=== PATIENT | female | born 1970 | race Two or more races ===

== ENCOUNTER 2024-04-11 13:01 | Outpatient (RCR) | payer MEDICAID, SELFPAY | END 2024-04-15 23:59 | disposition home or self-care (01) | LOC: SCTC 13:01 | PROVIDERS: PCP Physician Assistant; Referring Provider Physician Assistant; Visit Provider Nurse Practitioner Family | DX: D50.9 Iron deficiency anemia, unspecified (principal); D72.829 Elevated white blood cell count, unspecified; E66.01 Morbid (severe) obesity due to excess calories; Z68.42 Body mass index [BMI] 45.0-49.9, adult; N63.20 Unspecified lump in the left breast, unspecified quadrant; I10 Essential (primary) hypertension; E11.9 Type 2 diabetes mellitus without complications | CPT/HCPCS: 96365; 96366; 96375; J2919; J3490; Q0138 ==

== ENCOUNTER → 2024-07-06 | Outpatient (CLI) | payer MEDICAID, SELFPAY ==
[2024-07-05 09:35] LABS: Basophils % (Auto) 0 % (0-2.5); Eosinophils # (Auto) 0.1 Thou/mm3 (0.0-0.5); Eosinophils % (Auto) 1 % (0-10); Hemoglobin 12.1 g/dL (12.0-16.0); Immature Granulocytes % (Auto) 2 % (0-0); Immature Granulocytes Auto 0.23 Thou/mm3 (0.00-0.00); Lymphocytes # (Auto) 2.4 Thou/mm3 (1.0-4.8); Lymphocytes % (Auto) 19 % (10-50); Mean Corpuscular HGB Conc 32.7 g/dl (31.0-37.0); Mean Corpuscular Hemoglobin 32.5 pg (25.0-35.0); Mean Corpuscular Volume 100 fL (80-100); Monocytes # (Auto) 0.6 Thou/mm3 (0.0-0.8); Monocytes % (Auto) 5 % (0-12); Neutrophils # (Auto) 8.8 Thou/mm3 (1.8-7.7); Neutrophils % (Auto) 73 % (37-80); Nucleated Red Blood Cell % 0 /100 WBC (0); Platelet Count 311 Thou/mm3 (140-440); RDW Standard Deviation 49.6 fL (36.4-46.3); Red Blood Count 3.72 Miln/mm3 (4.00-5.20); White Blood Count 12.1 Thou/mm3 (3.6-11.0)
[2024-07-05 09:36] LABS: INR 0.9 (0.9-1.3); Partial Thromboplastin Time 23.4 Seconds (22.0-36.0); Prothrombin Time 10.3 Seconds (9.0-12.2)
--- NOTE | 2024-07-06 09:30 | XR_ITS ---
Examinations: Ultrasound-guided percutaneous breast biopsy, left breast 1:00 nodule Left breast sonography limited INDICATIONS: BI-RADS 4 suspicious nodule 1:00 position left breast on left breast sonogram March 17, 2024. Exam date and time: July 06, 2024 1005 hours. Informed consent provided. Technique: A timeout was completed verifying correct patient, procedure, site, positioning, and special equipment if applicable Informed consent provided. The patient was placed in a supine position for the breast biopsy. Sonographic images of the breast were performed for localization of the suspicious nodule The patient's breast was prepped and draped in sterile fashion. Maximum sterile barrier technique, hand hygiene, ultrasound sterile technique 1% lidocaine was used to anesthetize the skin and breast adjacent to the suspicious nodule. Utilizing ultrasonographic guidance, 8 core biopsies were obtained of the suspicious nodule utilizing an 18-gauge BioPince needle. The specimens appears satisfactory. Estimated blood loss 3 cc. The patient tolerated the procedure well and there were no complications. Impression: Successful ultrasound-guided percutaneous breast biopsy, left breast 1:00 nodule.
== END | disposition home or self-care (01) ==
LOC: SIRX 07-13 08:15
PROVIDERS: Radiology Diagnostic Radiology; PCP Physician Assistant; Referring Provider Physician Assistant; Visit Provider Physician Assistant
DX: D24.2 Benign neoplasm of left breast (principal); Z01.812 Encounter for preprocedural laboratory examination
CPT/HCPCS: 19083; 36415; 85025; 85610; 85730

== ENCOUNTER 2024-08-02 13:29 | Outpatient (RCR) | payer MEDICAID, SELFPAY ==
--- NOTE | 2024-08-21 00:53 | CTCFLWUP_ITS ---
Patient: SINGH ARELLANO : 1970 Page 3 of 4 FOLLOW UP NOTE DATE OF SERVICE: 08/02/2024 NAME: SINGH ARELLANO ACCOUNT: [id number] : 1970 AGE: 54 INTERVAL HISTORY: ONCOLOGY HISTORY: DIAGNOSIS: Leukocytosis and neutrophilia secondary to obesity Morbid obesity with a BMI of 47.7 (236 pounds) Flow cytometry, negative (03/31/2021) History of normocytic anemia Iron deficiency, 02/02/2023 Ms. Arellano is premenopausal. She continues to have menstrual cycles. Hypertension REASON FOR TODAY?S VISIT: This is an office follow-up visit. Ms. Arellano is here at [facility]. Patient's only complaint today is feeling tired. Labs from 01/25/2024 show hemoglobin 10.0, MCV 95, iron saturation 6%, WBC 16.7, ANC 10.6. Patient has been taking oral ferrous sulfate daily, iron saturation decreased from 12% to 6%. Patient denies any bleeding concerns. Pending GI for colonoscopy screening, no previous colonoscopies. Patient reports good appetite. Denies any cough, chest pain, abdominal pain or leg cramps, fever, weight loss. Denies craving ice paint dirt. Iron deficiency anemia, unspecified [ICD10] D50.9 DATE OF DIAGNOSIS: STAGE/TNM: TREATMENT HISTORY: Care?Plan Start?Date Cycle Day Intent FERAheme?4?doses 03/28/2024 1 28 Palliative HISTORY OF PRESENT ILLNESS: PREVIOUS NOTE: Ms. Santos is a 54-year-old Tunisian-speaking female with past medical history of hypothyroidism, hypertension and diabetes. She is referred to hematology clinic today to evaluate for leukocytosis with neutrophilia and lymphocytosis. Patient denies any history of smoking or use of alcohol. Labs done prior to the visit are shown as followin10/16/2021: WBC 14.7, ANC 11.0, hemoglobin 12.6, platelets 348,000. 01/25/2023: Hemoglobin 10.5, hematocrit 32.4, MCV 88, WBC 16.7, ANC 12.3, platelets 431,000, creatinine 1.21, EGFR 54. 02/02/2023: Hemoglobin 10.8, hematocrit 33.9, MCV 89, WBC 13.5, ANC 1 9, platelets 434,000, creatinine 0.98, EGFR 70, AST 78, ALT 53. Iron saturation 9%, ferritin 28. 02/26/2023: Hemoglobin 11.6, hematocrit 35.0, MCV 90, WBC 11.6, ANC 7.1, platelets 418,000, creatinine 1.07, eGFR 63, AST 63, ALT 49, bilirubin total 0.3. 08/11/2023: bilateral breast diagnostic mammogram Findings: Scattered areas of fibroglandular density 1:00 nodule again depicted Benign calcifications Impression: BI-RADS Category 0: Incomplete: Need additional imaging evaluation Recommend follow-up repeat left breast sonography to compare with the May 07, 2022 left breast sonogram describing the BI-RADS 4 suspicious nodule 1:00 position left breast. 09/10/2023: Hemoglobin 10.0, MCV 89, WBC 16.3, ANC 9.6, platelets 478,000, creatinine 0.85, AST 24, ALT 23, bilirubin total <0.2, iron saturation 12%, ferritin 15 08/11/2023: Bilateral diagnostic mammogram Impression: BI-RADS Category 0: Incomplete: Need additional imaging evaluation Recommend follow-up repeat left breast sonography to compare with the May 07, 2022 left breast sonogram describing the BI-RADS 4 suspicious nodule 1:00 position left breast. 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 levothyroxine - 25 mcg 1 tab Daily 2. levothyroxine - 50 mcg 1 tab Daily 3. losartan-hydrochlorothiazide - 50-12.5 mg 1 tab Daily Medications Last Reconciled by Singh Braxton MA on 08/02/2024 ALLERGIES: No Known Drug Allergies REVIEW OF SYSTEMS: A complete 14-point review of systems was performed and is negative except as noted in interval history. PHYSICAL EXAMINATION: VITAL SIGNS: Temperature?99.8, B/P?169/107, Oxygen?Saturation?97% Weight?222?lbs PAIN: 0 - No pain GENERAL APPEARANCE: Appears well, in no apparent distress, appropriately interactive. HEENT: Normocephalic, no temporal wasting, normal conjunctiva, no scleral icterus, normal hearing, lips without lesions, neck normal range of motion. CARDIOVASCULAR: Not assessed. PULMONARY: Normal respiratory effort, no respiratory distress or use of accessory muscles, speaking in full sentences, no tachypnea. EXTREMITIES: No pedal edema or cyanosis. SKIN: Normal skin appearance. NEUROLOGIC: Alert and oriented x4. PSHYCHIATRIC: Appropriate affect, mood normal, behavior normal, intact thought and speech. LABORATORY DATA: I have personally reviewed and interpreted each of the patient?s relevant lab tests, abnormal findings are below: Date 07/05/24 ??WHITE?BLOOD?COUNT?(Thou/mm3) 12.1?H ??RED?BLOOD?COUNT?(Miln/mm3) 3.72?L ??HEMOGLOBIN?(gm/dl) 12.1 ??HEMATOCRIT?(%) 37.0 ??PLATELET?COUNT?(Thou/mm3) 311 ??NEUTROPHILS?%,?AUTO?(%) 73 ??LYMPH?%,?AUTO?(%) 19 ??NEUTROPHILS,?AUTO?(Thou/mm3) 8.8?H ASSESSMENT/PLAN: 1. Iron deficiency anemia, no improvement with oral ferrous sulfate. 2. Chronic kidney disease 3. Leukocytosis and neutrophilia secondary to obesity. 4. Morbid obesity with a BMI of 47.7, 236 LB. 7. Left breast nodule,6 month left breast ultrasound recommended, 10/05/2023. 8. History of hypertension and diabetes. ORDERS: Order # Description [id number] Comprehensive Metabolic Panel - 12 + CBC with Auto Diff + CA 15-3 [id number] Will order colonoscopy with the GI Sleep study to evaluate for hypoxia RETURN TO CLINIC: 4 weeks BILLING AND COMPLIANCE: I reviewed external records from providers outside my specialty as summarized above. I spent a total of 50 minutes on this patient?s care on the day of their visit excluding time spent related to any billed procedures. This time includes time spent with the patient as well as time spent documenting in the medical record, reviewing patients records and tests, obtaining history, placing orders, communicating with other healthcare professionals, counseling the patient, family or caregiver, and/or care coordination for the diagnoses above. Electronically Signed by: Jorge Lorenzana MD T: 12:51 AM CC: Rosa Isela?Herb? PCP: Barbara Armstrong Referring: Barbara Armstrong This document was completed utilizing speech recognition software. Grammatical errors, random word insertions, pronoun errors, and incomplete sentences are an occasional consequence of this system due to software limitations, ambient noise, and hardware issues. Any formal questions or concerns about the content, text or information contained within the body of this dictation should be directly addressed to the provider for clarification.
== END 2024-08-14 23:59 | disposition home or self-care (01) ==
LOC: SCTC 13:29
PROVIDERS: PCP Physician Assistant; Referring Provider Physician Assistant; Visit Provider Internal Medicine Hematology & Oncology
DX: D50.9 Iron deficiency anemia, unspecified (principal); D72.829 Elevated white blood cell count, unspecified; E66.01 Morbid (severe) obesity due to excess calories; Z68.42 Body mass index [BMI] 45.0-49.9, adult; E11.22 Type 2 diabetes mellitus with diabetic chronic kidney disease; I12.9 Hypertensive chronic kidney disease with stage 1 through stage 4 chronic kidney disease, or unspecified chronic kidney disease; N18.9 Chronic kidney disease, unspecified; N63.21 Unspecified lump in the left breast, upper outer quadrant
CPT/HCPCS: 99213; G0463

== ENCOUNTER 2024-08-24 16:28 | Emergency (ER) | payer MEDICAID, SELFPAY ==
[2024-08-24 16:51] VITALS: BP 161/92; PULSE 106; RESP 18; TEMP 37.3; O2SAT 95; BMI 45.6
--- NOTE | 2024-08-24 17:01 | XR_ITS ---
Examination: Duplex scan of the lower extremity, unilateral right Date and time of exam: August 24, 2024 1757 hrs. Indications: Right leg and calf pain beginning one week ago Technique: Duplex scan of the extremity veins using B-mode/grayscale imaging and Doppler spectral analysis and color flow Attention is directed to internal echogenicity, compression and augmentation involving these veins, color flow assessment, spectral analysis Findings: Major deep venous structures in the extremity demonstrate normal course and caliber. There is no evidence of deep vein thrombosis. Normal color flow and spectral analysis 11 mm popliteal cyst Impression: Negative for DVT..
--- NOTE | 2024-08-24 17:02 | PD.EDRME ---
Rapid Medical Screening Exam RME Arrival date/time: 08/24/24 16:28 This is 54-year-old female presented to the emergency department to rule out DVT right calf. Sent over by her PCP I have greeted and performed a focused initial assessment of this patient. Initial appropriate labs ordered at this time. A comprehensive ED assessment and evaluation of the patient and analysis of all test and completion of medical decision making process will be conducted by additional ED provider. Chief Complaint: Ankle/Foot Injury Time Seen by Provider: 08/24/24 16:43 Vital signs: Vital Signs Temperature 99.1 F 08/24/24 16:51 Pulse Rate 106 H 08/24/24 16:51 Respiratory Rate 18 08/24/24 16:51 Blood Pressure 161/92 H 08/24/24 16:51 Pulse Oximetry (%) 95 08/24/24 16:51 Oxygen Delivery Method Room Air 08/24/24 16:51
[2024-08-24 17:37] LABS: Basophils % (Auto) 0 % (0-2.5); Eosinophils # (Auto) 0.1 Thou/mm3 (0.0-0.5); Eosinophils % (Auto) 1 % (0-10); Hematocrit 36.4 % (36.0-46.0); Immature Granulocytes % (Auto) 2 % (0-0); Immature Granulocytes Auto 0.19 Thou/mm3 (0.00-0.00); Lymphocytes % (Auto) 16 % (10-50); Mean Corpuscular Hemoglobin 33.4 pg (25.0-35.0); Mean Corpuscular Volume 101 fL (80-100); Monocytes # (Auto) 0.6 Thou/mm3 (0.0-0.8); Monocytes % (Auto) 4 % (0-12); Neutrophils % (Auto) 78 % (37-80); Nucleated Red Blood Cell % 0 /100 WBC (0); Platelet Count 358 Thou/mm3 (140-440); RDW Standard Deviation 51.3 fL (36.4-46.3); Red Blood Count 3.59 Miln/mm3 (4.00-5.20); White Blood Count 12.9 Thou/mm3 (3.6-11.0)
[2024-08-24 17:55] LABS: Alanine Aminotransferase 26 U/L (10-49); Albumin, Serum 4.1 gm/dL (3.5-5.0); Albumin/Globulin Ratio 1.4 (1.2-2.2); Alkaline Phosphatase 60 U/L (46-116); Anion Gap 11 (7-16); Aspartate Amino Transferase 17 U/L (0-34); BUN/Creatinine Ratio 15 Ratio (12-20); Bilirubin,Total 0.5 mg/dL (0.3-1.2); Blood Urea Nitrogen 24 mg/dL (9-23); Calcium 9.2 mg/dL (8.3-10.6); Calcium (Corrected) 9.2 mg/dL (8.5-10.1); Carbon Dioxide 25.4 mMol/L (20.0-31.0); Chloride 107 mMol/L (98-107); Creatinine (Component) 1.6 mg/dL (0.6-1.3); Estimated Creatinine Clearance 41.6 mL/min (>60); Globulin 2.9 gm/dL (2.3-3.5); Glucose 117 mg/dL (74-106); Osmolality,Calculated 289 (275-295); Potassium 3.7 mMol/L (3.4-5.1); Sodium 143 mMol/L (136-145); eGFR 39 See Note
[2024-08-24 17:59] LABS: Prothrombin Time 10.8 Seconds (9.0-12.2)
--- NOTE | 2024-08-24 20:41 | EDNOTE_ITS ---
ED General RME/HPI General Chief complaint: Ankle/Foot Injury Stated complaint: RIGHT FOOT SWOLLEN/PAIN X 1 WK; SENT BY PRIMARY Time Seen by Provider: 08/24/24 16:43 Arrival date/time: 08/24/24 16:28 RME / HPI RME / HPI narrative: 54-year-old female patient was sent to us by primary doctor to rule out DVT for swelling of the right lower leg for 1 week. Denies any trauma denies any redness denies any fever denies any other complaints no medication was taken prior to arrival. Related Data Allergies Allergy/AdvReac Type Severity Reaction Status Date / Time No Known Allergies Allergy Verified 08/24/24 16:33 Review of Systems Review of Systems Narrative Review of Systems: Review of system reviewed and within normal limits except mentioned in HPI ED Exam Narrative Physical exam: VITAL SIGNS: Reviewed. GENERAL APPEARANCE: Alert and interactive, follows commands, no acute distress, HEAD AND FACE: Non-traumatic. ENT: PERRL, pink conjunctivitis, eyelid no trauma, Mucous membrane moist. NECK: Supple, nontender, no nuchal rigidity. CHEST: No tenderness, no crepitus, no paradoxical movement, no retractions. LUNGS: Clear, well ventilated, symmetric, no rales, no wheezing, no ronchi, no stridor, good breath sounds bilaterally. HEART: Regular rate, regular rhythm, no murmur, no gallops. ABDOMEN: Soft, positive bowel sounds, nondistended, no guarding, nontender, no rebound, no masses, RECTAL: Deferred. GENITAL: Deferred. NEUROLOGICAL: Gross motor function intact sensory function intact, Appropriate for age. MUSCULOSKELETAL: low back nontender, full range of motion. EXTREMITIES: Right lower extremity +1 edema, nontender distal neurovascular status intact, full range of motion. SKIN: Color pink, dry, no rash, no lacerations, no abrasions, no contusions. LYMPHATICS: Deferred. Course Quality Measures none Orders Category Date Time Status US venous duplex LE RT Stat Exams 08/24/24 17:01 Completed CBC Stat Lab 08/24/24 17:24 Completed CMP [Comprehensive Metabolic Panel] Stat Lab 08/24/24 17:24 Completed INR [Prothrombin Time with INR] Stat Lab 08/24/24 17:24 Completed Vital Signs Vital signs: Vital Signs Temperature 99.1 F 04/10/25 16:51 Pulse Rate 106 H 08/24/24 16:51 Respiratory Rate 18 08/24/24 16:51 Blood Pressure 161/92 H 08/24/24 16:51 Pulse Oximetry (%) 95 08/24/24 16:51 Oxygen Delivery Method Room Air 08/24/24 16:51 MDM Patient data External records reviewed:: None Clinical information provided by:: patient Social determinants that could affect healthcare access:: none Patient has the following chronic illnesses:: None How is presenting disease/condition affected by chronic disease/condition?: no chronic disease Evaluation data The following diagnostics were reviewed and interpreted by me:: lab results and radiology exam(s) Lab and/or radiology exams considered but not ordered:: None Interpretation Summary: Patient's workup all came back unremarkable ultrasound of the leg came back with no DVT. Medications Medications considered but not ordered:: None Medication administrations:: None Consultations Consultation(s) initiated? (list below): No Diagnosis Differential Diagnosis ED Complaint MDM: DVT, leg swelling, lymphedema Most likely diagnosis given after review of the tests above:: Leg swelling Admission Indicated Admission indicated?: not indicated Explain why admission is indicated or not indicated:: Stable Admission Request Was there a request for admission?: No Disposition Plan Disposition Plan: Discharge Discharge Attestation Discharge Attestation: The patient and all family members were given an opportunity to ask questions and understood the discharge instructions. Discharge instructions specifically effects, indications for sooner follow up or return to the emergency department, and the expected course of current diagnosis. Patient condition: Stable Medical Decision Making MDM Narrative MDM Narrative: 54-year-old female patient was sent to us by primary doctor to rule out DVT for swelling of the right lower leg for 1 week. Denies any trauma denies any redness denies any fever denies any other complaints no medication was taken prior to arrival. Patient tested negative for DVT. Patient's workup is significant for slight leukocytosis of 12.9 the rest of the labs unremarkable. Except for creatinine of 1.6 and BUN of 24. Patient was advised to drink a lot of fluids and follow- up closely with PCP for repeat laboratory workup especially the creatinine. Patient and family agrees with the plan. Patient appears nontoxic and hemodynamically stable. Patient discharged home and instructed to follow-up with primary care provider in 24 to 48 hours. Instructed to return to the emergency department immediately if worsening of symptoms Differential Diagnosis Differential Diagnosis: DVT, leg swelling, lymphedema Lab Data 08/24/24 17:24 08/24/24 17:24 Labs: Lab Results 08/24/24 Range/Units 17:24 WBC 12.9 H (3.6-11.0) Thou/mm3 RBC 3.59 L (4.00-5.20) Miln/mm3 Hgb 12.0 (12.0-16.0) g/dL Hct 36.4 (36.0-46.0) % MCV 101 H (80-100) fL MCH 33.4 (25.0-35.0) pg MCHC 33.0 (31.0-37.0) g/dl RDW Std Deviation 51.3 H (36.4-46.3) fL Plt Count 358 (140-440) Thou/mm3 Neut % (Auto) 78 (37-80) % Lymph % (Auto) 16 (10-50) % [place] % (Auto) 4 (0-12) % Eos % (Auto) 1 (0-10) % Baso % (Auto) 0 (0-2.5) % Neut # (Auto) 10.0 H (1.8-7.7) Thou/mm3 Lymph # (Auto) 2.0 (1.0-4.8) Thou/mm3 [place] # (Auto) 0.6 (0.0-0.8) Thou/mm3 Eos # (Auto) 0.1 (0.0-0.5) Thou/mm3 Baso # (Auto) 0.0 (0.0-0.2) Thou/mm3 Immature Gran # (Auto) 0.19 H (0.00-0.00) Thou/mm3 Absolute Nucleated RBC 0.00 (0.00-0.00) Thou/mm3 Immature Gran % 2 H (0-0) % Nucleated RBC % 0 (0) /100 WBC PT 10.8 (9.0-12.2) Seconds INR 1.0 (0.9-1.3) Sodium 143 (136-145) mMol/L Potassium 3.7 (3.4-5.1) mMol/L Chloride 107 (98-107) mMol/L Carbon Dioxide 25.4 (20.0-31.0) mMol/L Anion Gap 11 (7-16) BUN 24 H (9-23) mg/dL Creatinine 1.6 H (0.6-1.3) mg/dL Estim Creat Clear Calc 41.6 L (>60) mL/min eGFR 39 L (60 - ) See Note BUN/Creatinine Ratio 15 (12-20) Ratio Glucose 117 H (74-106) mg/dL Calculated Osmolality 289 (275-295) Calcium 9.2 (8.3-10.6) mg/dL Corrected Calcium 9.2 (8.5-10.1) mg/dL Total Bilirubin 0.5 (0.3-1.2) mg/dL AST 17 (0-34) U/L ALT 26 (10-49) U/L Alkaline Phosphatase 60 (46-116) U/L Total Protein 7.0 (5.7-8.2) gm/dL Albumin 4.1 (3.5-5.0) gm/dL Globulin 2.9 (2.3-3.5) gm/dL Albumin/Globulin Ratio 1.4 (1.2-2.2) Discharge Plan Plan Patient Disposition: HOME (Self Care) Disposition Comment: Stable Prescriptions/Referrals Referrals: No Primary/Family,Physician [Primary Care Provider] - In 1 week Problem List Clinical Impression: Leg swelling, Dehydration Patient/Caregiver Discharge Instructions Discharge Activity: activity as tolerated Education Materials: ED Leg Swelling in a Single Leg Additional Instructions: Thank you for the opportunity for serving you today. You are stable for discharged . You are advised to: Follow-up with your PCP in 1 to 2 days Return to ED for worsening of symptoms Increase oral fluids Print Language: Gibraltarian Stand Alone Forms: Michelle Award Info., Patient Portal Info Letter DESMOND/THEODORE Supervising Physician SHAI Supervising Physician: MD Quin[place]
== END 2024-08-24 20:44 | disposition home or self-care (01) ==
PROVIDERS: Nurse Practitioner Primary Care; Emergency Provider Emergency Medicine
DX: R22.41 Localized swelling, mass and lump, right lower limb (principal); E86.0 Dehydration; D72.829 Elevated white blood cell count, unspecified
CPT/HCPCS: 36415; 80053; 85025; 85610; 93971; 99284

== ENCOUNTER → 2024-09-29 | Outpatient (CLI) | payer MEDICAID, SELFPAY ==
--- NOTE | 2024-09-29 08:45 | XR_ITS ---
Examination: Screening digital mammography, bilateral Computer aided detection 3-D breast Tomosynthesis, bilateral Date and time of exam: September 29, 2024 0825 hours Compared to mammograms dating to December 05, 2020 Indication: Screening Technique: Nonmagnified MLO, CC views of the breasts to been obtained, reconstructed from 3-D Tomosynthesis images. R2 computer aided detection program utilized for evaluation of suspicious masses and/or abnormal calcifications. 3-D Tomosynthesis images obtained. Findings: Scattered areas of fibroglandular density Calcifications associated with the nodule in the 12:00 position left breast Impression: BI-RADS Category 0: Incomplete: Need additional imaging evaluation Recommend follow-up magnification compression views of microcalcifications associated with nodule 12:00 position left breast as well as left breast sonography to complete the workup
== END | disposition home or self-care (01) ==
PROVIDERS: Referring Provider Physician Assistant; Visit Provider Physician Assistant
DX: Z12.31 Encounter for screening mammogram for malignant neoplasm of breast (principal); N63.25 Unspecified lump in the left breast, overlapping quadrants
CPT/HCPCS: 77063; 77067

== ENCOUNTER 2024-11-02 13:03 | Outpatient (RCR) | payer MEDICAID, SELFPAY | END 2024-11-13 23:59 | disposition home or self-care (01) | LOC: SCTC 13:03 | PROVIDERS: PCP Physician Assistant; Referring Provider Physician Assistant; Visit Provider Nurse Practitioner Family | DX: D72.829 Elevated white blood cell count, unspecified (principal); R92.30 Dense breasts, unspecified; E11.22 Type 2 diabetes mellitus with diabetic chronic kidney disease; N18.9 Chronic kidney disease, unspecified; E66.9 Obesity, unspecified; Z71.3 Dietary counseling and surveillance; Z68.41 Body mass index [BMI] 40.0-44.9, adult | CPT/HCPCS: 99212; G0463 ==

== ENCOUNTER → 2024-11-24 | Outpatient (CLI) | payer MEDICAID, SELFPAY ==
--- NOTE | 2024-11-24 08:30 | XR_ITS ---
Examination: Breast ultrasound, unilateral, left Date and time of exam: November 24, 2024 0852 hours INDICATIONS: Mammogram September 29, 2024 calcifications 12:00 position left breast Technique: Real-time ding scale ultrasonographic imaging performed left breast including all 4 quadrants as well as nipple retroareolar and axillary region. Findings: 12:00 cyst 27 x 22 mm 1:00 nodule lobular partially indistinct margins 0.1 x 11 x 21 mm 6:00 cyst 14 x 24 mm IMPRESSION: BI-RADS Category 4: Suspicious for malignancy Suspicious nodule 1:00 position left breast, biopsy is needed to exclude breast carcinoma, this nodule is amenable to ultrasound-guided breast biopsy for diagnosis
--- NOTE | 2024-11-24 09:00 | XR_ITS ---
Examination: Diagnostic digital mammography, unilateral, left Computer aided detection 3-D breast Tomosynthesis, unilateral Date and time of exam: November 24, 2024 0911 hours INDICATIONS: Microcalcifications with nodule 12:00 position left breast Technique: Nonmagnified MLO, CC views of the left breast have been obtained, reconstructed from 3-D Tomosynthesis images. R2 computer aided detection program utilized for evaluation of suspicious masses and/or abnormal calcifications. 3-D Tomosynthesis images obtained. Findings: Scattered areas of fibroglandular density 12:00 nodule suspicious lobular margins, 26 mm Impression: BI-RADS category 4: Suspicious for malignancy Suspicious mass 12:00 position left breast, biopsy is needed to exclude breast carcinoma This mass is amenable to ultrasound-guided breast biopsy for diagnosis
== END | disposition home or self-care (01) ==
LOC: CDIM 08:19
PROVIDERS: Referring Provider Physician Assistant; Visit Provider Physician Assistant
DX: R92.342 Mammographic extreme density, left breast (principal); N63.25 Unspecified lump in the left breast, overlapping quadrants; N63.21 Unspecified lump in the left breast, upper outer quadrant
CPT/HCPCS: 76641; 77061; 77065; G0279

== ENCOUNTER 2025-01-08 11:35 | Outpatient (RCR) | payer MEDICAID, SELFPAY | END 2025-01-14 23:59 | disposition home or self-care (01) | LOC: SCTC 11:35 | PROVIDERS: PCP Physician Assistant; Referring Provider Physician Assistant; Visit Provider Nurse Practitioner Family | DX: D72.829 Elevated white blood cell count, unspecified (principal); D72.828 Other elevated white blood cell count; E11.22 Type 2 diabetes mellitus with diabetic chronic kidney disease; N18.9 Chronic kidney disease, unspecified; E66.9 Obesity, unspecified; Z68.41 Body mass index [BMI] 40.0-44.9, adult; Z71.3 Dietary counseling and surveillance; R21 Rash and other nonspecific skin eruption | CPT/HCPCS: 99213; G0463 ==

== ENCOUNTER 2025-02-19 08:12 | Outpatient (CLI) | payer MEDICAID, SELFPAY ==
[2025-02-15 17:43] VITALS: BMI 43.0
[2025-02-16 10:17] LABS: Basophils # (Auto) 0.0 Thou/mm3 (0.0-0.2); Basophils % (Auto) 0 % (0-2.5); Eosinophils # (Auto) 0.1 Thou/mm3 (0.0-0.5); Eosinophils % (Auto) 1 % (0-10); Hematocrit 37.6 % (36.0-46.0); Hemoglobin 12.0 g/dL (12.0-16.0); Immature Granulocytes Auto 0.18 Thou/mm3 (0.00-0.00); Lymphocytes # (Auto) 2.8 Thou/mm3 (1.0-4.8); Lymphocytes % (Auto) 17 % (10-50); Mean Corpuscular HGB Conc 31.9 g/dl (31.0-37.0); Mean Corpuscular Hemoglobin 31.5 pg (25.0-35.0); Mean Corpuscular Volume 99 fL (80-100); Monocytes # (Auto) 1.0 Thou/mm3 (0.0-0.8); Monocytes % (Auto) 6 % (0-12); Neutrophils # (Auto) 12.0 Thou/mm3 (1.8-7.7); Neutrophils % (Auto) 75 % (37-80); Nucleated Red Blood Cell # 0.00 Thou/mm3 (0.00-0.00); Nucleated Red Blood Cell % 0 /100 WBC (0); Platelet Count 405 Thou/mm3 (140-440); RDW Standard Deviation 48.0 fL (36.4-46.3); Red Blood Count 3.81 Miln/mm3 (4.00-5.20); White Blood Count 16.1 Thou/mm3 (3.6-11.0)
[2025-02-16 10:28] LABS: Blood Urea Nitrogen 33 mg/dL (9-23); Creatinine (Component) 1.3 mg/dL (0.6-1.3); Estimated Creatinine Clearance 53.1 mL/min (>60); eGFR 49 See Note
[2025-02-16 10:31] LABS: INR 0.9 (0.9-1.3); Partial Thromboplastin Time 23.7 Seconds (22.0-36.0); Prothrombin Time 10.0 Seconds (9.0-12.2)
[2025-02-16 10:34] LABS: HCG,Qualitative Serum Negative
[2025-02-19] VITALS (9 sets, daily range): BP systolic 129–189; BP diastolic 77–104; PULSE 68–108; RESP 14–21; TEMP 36.7–36.8; O2SAT 92–99
[2025-02-19 09:23] LABS: Flow Cytometry* See Sep Rpt
[2025-02-19] MEDS: SODIUM CHLORIDE 0.9% 500 ML 500 ML 100 ML IV (09:35)
--- NOTE | 2025-02-19 09:41 | XR_ITS ---
Examination: CT-guided percutaneous bone marrow aspiration left posterior superior iliac crest CT-guided percutaneous bone biopsy deep left posterior superior iliac crest CT pelvis without intravenous contrast Date and time of procedure: February 19, 2025, 0950 hours INDICATIONS: Leukocytosis, unknown etiology Informed consent provided. A timeout was completed verifying correct patient, procedure, site and positioning. Technique: Axial 3 mm sections were obtained for localization of the left posterior superior iliac crest Appropriate area is marked. The patient's site was prepped and draped in sterile fashion Maximal sterile barrier technique utilized, including hand hygiene Local anesthesia was obtained with 1% lidocaine. Low dose protocols were performed. One or more of the following dose reduction techniques were used; automated exposure control, adjustment of the mA and/or KV according to patient size, use of iterative reconstruction technique. Utilizing CT fluoroscopic guidance 14-gauge bone biopsy needle placed in the left posterior superior iliac crest. 5 cc marrow aspirate 5 cc bone core obtained Patient appears in stable condition during this procedure. At completion of the procedure, the patient is in satisfactory condition. Estimated blood loss 5 cc Complete pathology report to follow. Impression: Successful CT-guided percutaneous bone marrow aspiration right posterior superior iliac crest Successful CT-guided percutaneous bone biopsy deep left posterior superior iliac crest
[2025-02-19] MEDS: fentaNYL CIT INJ 50 mCg/ML AMP 2ML 100 MCG IVP (10:05)
[2025-02-19] MEDS: LIDOCAINE INJ PF 1% 30 ML VIAL 5 ML INFL (10:09)
== END 2025-02-19 11:33 | disposition home or self-care (01) ==
PROVIDERS: Radiology Diagnostic Radiology; PCP Nurse Practitioner Family; Referring Provider Nurse Practitioner Family; Visit Provider Nurse Practitioner Family
DX: D70.4 Cyclic neutropenia (principal); D50.9 Iron deficiency anemia, unspecified
CPT/HCPCS: 38221; 36415; 77012; 82565; 84520; 84703; 85025; 85610; 85730; J3010; J3490; J7999

== ENCOUNTER → 2025-02-27 | Outpatient (CLI) | payer MEDICAID, SELFPAY ==
--- NOTE | 2025-02-27 11:00 | XR_ITS ---
Examination: Retroperitoneal ultrasound, complete Technique: Multiple high resolution grayscale images of the retroperitoneum obtained, including kidneys and bladder. Exam date and time: February 27, 2025, 11:25 a.m. INDICATIONS: Diagnosis chronic kidney disease on laboratory examination February 16, 2025 FINDINGS: Right kidney 9.7 cm renal cortex 1.1 cm Left kidney 8.7 cm renal cortex 1.3 cm Lower pole 4 mm possible left renal calculus No hydronephrosis Mild renal scarring Contracted urinary bladder Incidental note uterine fundal mass 2.2 x 2.4 x 2.5 cm IMPRESSION: Small kidneys with bilateral renal cortical thinning 4 mm lower pole left renal calculus Consider pelvic sonography to assess uterine fundal mass
== END | disposition home or self-care (01) ==
PROVIDERS: PCP Physician Assistant; Referring Provider Internal Medicine; Visit Provider Internal Medicine
DX: N28.89 Other specified disorders of kidney and ureter (principal); N20.0 Calculus of kidney; N18.30 Chronic kidney disease, stage 3 unspecified
CPT/HCPCS: 76770

== ENCOUNTER → 2025-05-09 | Outpatient (CLI) | payer MEDICAID, SELFPAY ==
--- NOTE | 2025-05-09 09:00 | XR_ITS ---
Examination: Transvaginal ultrasound of the pelvis, complete Technique: Transvaginal sonographic images pelvis performed using ding scale imaging Exam date and time: May 09, 2025, 0912 hours INDICATIONS: History fibroid degeneration involving the uterus FINDINGS: Uterus 11.1 x 6.8 x 5.7 cm Right uterine body area of fibroid degeneration 2.4 x 2.3 x 2.3 cm, endometrial stripe 1.3 cm Ovaries obscured by bowel gas. IMPRESSION: Enlarged uterus with uterine body area fibroid degeneration 2.4 x 2.3 x 2.3 cm
== END | disposition home or self-care (01) ==
LOC: CDIM 08:49
PROVIDERS: PCP Internal Medicine; Referring Provider Internal Medicine; Visit Provider Internal Medicine
DX: N85.2 Hypertrophy of uterus (principal); D25.9 Leiomyoma of uterus, unspecified
CPT/HCPCS: 76830